=== PATIENT | male | born 2000 | race Caucasian/White ===

== ENCOUNTER 2024-07-18 17:45 | Emergency (ER) | payer SELFPAY ==
[2024-07-18] MEDS: Bacitracin Oint 28.35 GM Tube TOP STA ×2 (19:01→19:02)
[2024-07-18] MEDS: Acetaminophen 500 MG Tab PO ONE (19:02)
[2024-07-18] MEDS: Ketorolac 30 MG/ML SDV IM ONE (19:02)
== END 2024-07-18 19:29 | disposition home or self-care (01) ==
LOC: MW.ED 17:45
DX: T65.91XA Toxic effect of unspecified substance, accidental (unintentional), initial encounter (principal); T24.512A Corrosion of first degree of left thigh, initial encounter; T24.511A Corrosion of first degree of right thigh, initial encounter; L73.9 Follicular disorder, unspecified; F17.210 Nicotine dependence, cigarettes, uncomplicated; Z79.899 Other long term (current) drug therapy; Y99.0 Civilian activity done for income or pay; X08.8XXA Exposure to other specified smoke, fire and flames, initial encounter
CPT/HCPCS: 96372; 99283; A9270-GY; J1885